=== PATIENT | female | born 1970 | race Caucasian/White ===

== ENCOUNTER 2022-07-31 18:00 | Outpatient (CLI) | payer BC | END 2022-07-31 18:01 | disposition home or self-care (01) | LOC: SLEEPLAB 18:00 | PROVIDERS: ATTEND Nurse Practitioner Family | DX: G47.33 Obstructive sleep apnea (adult) (pediatric) (principal); G47.10 Hypersomnia, unspecified; R53.83 Other fatigue; R09.89 Other specified symptoms and signs involving the circulatory and respiratory systems; E66.9 Obesity, unspecified; R06.83 Snoring; G47.00 Insomnia, unspecified; F41.8 Other specified anxiety disorders; R35.1 Nocturia; I10 Essential (primary) hypertension; Z68.29 Body mass index [BMI] 29.0-29.9, adult | CPT/HCPCS: 95800 ==